=== PATIENT | female | born 1990 | race Caucasian/White ===

== ENCOUNTER 2020-01-16 23:38 | Emergency (ER) | payer MEDICAID ==
[~2020-01-16] VITALS: Ht 154.9 cm; Wt 58.0 kg
[~2020-01-16 23:38] MED LIST: DOXY-243 PO; MOT200T PO; NO HOME MEDS; PROC-8 PO
[2020-01-17 00:57] VITALS: BP 107/55
== END 2020-01-17 01:26 | disposition home or self-care (01) ==
LOC: ER 23:39
DX: N93.9 Abnormal uterine and vaginal bleeding, unspecified (principal); J45.909 Unspecified asthma, uncomplicated; R10.31 Right lower quadrant pain; Z90.49 Acquired absence of other specified parts of digestive tract; Z98.890 Other specified postprocedural states; Z72.89 Other problems related to lifestyle; Z88.2 Allergy status to sulfonamides; Z88.5 Allergy status to narcotic agent; Z79.899 Other long term (current) drug therapy; Z91.040 Latex allergy status
CPT/HCPCS: 36415; 84702; 99283

== ENCOUNTER 2020-03-18 22:48 | Emergency (ER) | payer MEDICAID ==
[~2020-03-18] VITALS: Ht 154.9 cm; Wt 61.4 kg
[2020-03-18] MEDS ORDERED: ketorolac tromethamine 15mg/ml inj. IM ONE (23:25)
[2020-03-18 23:50] LABS: URINE HCG NEGATIVE (NEG)
[2020-03-19] MEDS ORDERED: ondansetron 4mg rapidly disintigrating tab PO ONE (00:20)
[2020-03-19] MEDS ORDERED: oxyCODONE/APAP 5-325mg tablet PO ONE (00:20)
[2020-03-19 01:17] VITALS: BP 103/51
[2020-03-19] MEDS ORDERED: oxyCODONE IR 5mg (immed. release) tablet PO ONE (01:50)
== END 2020-03-19 02:05 | disposition home or self-care (01) ==
LOC: ER 22:49
DX: R10.32 Left lower quadrant pain (principal); R19.7 Diarrhea, unspecified; R11.10 Vomiting, unspecified; J45.909 Unspecified asthma, uncomplicated; Z87.440 Personal history of urinary (tract) infections; Z90.49 Acquired absence of other specified parts of digestive tract; Z98.890 Other specified postprocedural states; Z72.89 Other problems related to lifestyle; Z88.2 Allergy status to sulfonamides; Z88.5 Allergy status to narcotic agent; Z91.040 Latex allergy status; Z79.2 Long term (current) use of antibiotics
CPT/HCPCS: 76856; 81025; 87210; 93976; 96372; 99284; J1885

== ENCOUNTER 2021-05-14 20:34 | Emergency (ER) | payer MEDICAID ==
[~2021-05-14] VITALS: Ht 154.9 cm; Wt 68.2 kg
[2021-05-14 21:00] VITALS: BP 105/68
[2021-05-14 21:36] LABS: URINE HCG NEGATIVE (NEG)
[2021-05-14 21:38] LABS: UA COLLECTION TYPE CLN CATCH MIDSTREAM
[2021-05-14 21:39] LABS: CLARITY,URINE CLOUDY (Clear); COLOR,URINE STRAW (Yellow); GLUCOSE, URINE NEGATIVE (Neg); KETONES,URINE NEGATIVE (Neg); LEUKOCYTE ESTERASE ,URINE NEGATIVE (Neg); NITRITES, URINE NEGATIVE (Neg); OCCULT BLOOD,URINE LARGE (Neg); PH,URINE 7.5 (4.8-8.0); PROTEIN,URINE NEGATIVE (Neg); UROBILINOGEN,URINE 0.2 E.U/dL (0.2-1.0)
[2021-05-14 21:44] LABS: MUCUS STRANDS FEW /LPF (Neg); SQUAMOUS EPITHELIAL CELL,UR FEW /LPF (FEW)
[2021-05-14 21:45] LABS: BACTERIA,URINE FEW /HPF (Neg); RBC,URINE 50-100 /HPF (0-2); WBC,URINE 0-4 /HPF (0-4)
[2021-05-14 21:56] LABS: BASOPHILS % (AUTO) 0.2 % (0-1); EOSINOPHILS # (AUTO) 0.1 X10'3 (0-0.9); EOSINOPHILS % (AUTO) 1.6 % (0-6); HEMOGLOBIN 13.2 g/dl (12.0-16.0); LYMPHOCYTES # (AUTO) 2.1 X10'3 (1.1-4.8); LYMPHOCYTES % (AUTO) 31.5 % (21-51); MEAN CORPUSCULAR HGB CONC 33.9 g/dL (33.0-36.5); MEAN CORPUSCULAR VOLUME 88.6 FL (78-98); MEAN PLATELET VOLUME 9.3 FL (7.4-10.4); MONOCYTES # (AUTO) 0.4 X10'3 (0-0.9); NEUTROPHILS % (AUTO) 60.7 % (42-75); PLATELET COUNT 282 X10'3 (140-440); RED CELL DISTRIBUTION WIDTH 15.3 % (11.5-14.5); WHITE BLOOD COUNT 6.7 X10'3 (4.5-11.0)
[2021-05-14 22:09] LABS: ALANINE AMINOTRANSFERASE 25 U/L (12-78); ALBUMIN 3.6 G/DL (3.4-5.0); ALBUMIN/GLOBULIN RATIO 0.9 (1.1-1.5); ALKALINE PHOSPHATASE 81 IU/L (46-116); ANION GAP 8 (8-16); ASPARTATE AMINO TRANSFERASE 17 U/L (10-37); BILIRUBIN,TOTAL 0.1 MG/DL (0.1-1.0); BLOOD UREA NITROGEN 17 MG/DL (7-18); BUN/CREATININE RATIO 22.4 (6.6-38.0); CALCIUM 8.8 MG/DL (8.5-10.1); CHLORIDE 107 MMOL/L (99-107); CREATININE 0.76 MG/DL (0.40-0.90); GLUCOSE 100 MG/DL (70-104); LIPASE 120 U/L (73-393); SODIUM 141 MMOL/L (135-145); TOTAL CARBON DIOXIDE 25.6 MMOL/L (24-32); TOTAL PROTEIN 7.5 G/DL (6.4-8.2); eGFR 89 ML/MIN
[2021-05-15] MEDS ORDERED: MEDR10TA10 PO (03:28)
== END 2021-05-14 23:30 | disposition left against medical advice (07) ==
LOC: ER 20:35
DX: R10.32 Left lower quadrant pain (principal); Z53.21 Procedure and treatment not carried out due to patient leaving prior to being seen by health care provider
CPT/HCPCS: 36415; 80053; 81001; 81025; 83690; 85025

== ENCOUNTER 2021-05-15 01:16 | Emergency (ER) | payer MEDICAID ==
[~2021-05-15] VITALS: Ht 154.9 cm; Wt 68.2 kg
[2021-05-15 01:43] VITALS: BP 106/64
[2021-05-15] MEDS ORDERED: MEDR10TA10 PO (03:28)
[2021-05-15] MEDS ORDERED: HYDROcodone/acetaminophen 5mg/325mg tablet PO ONE (03:35)
== END 2021-05-15 03:46 | disposition home or self-care (01) ==
LOC: ER 01:17
DX: R10.32 Left lower quadrant pain (principal); N92.0 Excessive and frequent menstruation with regular cycle; R53.1 Weakness; R51.9 Headache, unspecified; J45.909 Unspecified asthma, uncomplicated; Z87.440 Personal history of urinary (tract) infections; Z90.49 Acquired absence of other specified parts of digestive tract; Z98.891 History of uterine scar from previous surgery; Z72.89 Other problems related to lifestyle; Z79.2 Long term (current) use of antibiotics; Z79.899 Other long term (current) drug therapy; Z88.2 Allergy status to sulfonamides; Z88.8 Allergy status to other drugs, medicaments and biological substances; Z91.040 Latex allergy status
CPT/HCPCS: 76856; 93976; 99284

== ENCOUNTER 2021-06-20 01:31 | Emergency (ER) | payer MEDICAID ==
[~2021-06-20] VITALS: Ht 154.9 cm; Wt 72.0 kg
[~2021-06-20 01:31] MED LIST changes: +MEDR10TA10 PO
[2021-06-20 02:45] LABS: BASOPHILS % (AUTO) 0.2 % (0-1); EOSINOPHILS # (AUTO) 0.1 X10'3 (0-0.9); EOSINOPHILS % (AUTO) 0.8 % (0-6); HEMATOCRIT 38.4 % (35.0-45.0); LYMPHOCYTES # (AUTO) 2.5 X10'3 (1.1-4.8); MEAN CORPUSCULAR HEMOGLOBIN 30.4 PG (27.0-31.0); MEAN CORPUSCULAR VOLUME 89.6 FL (78-98); MONOCYTES # (AUTO) 0.6 X10'3 (0-0.9); MONOCYTES % (AUTO) 7.4 % (2-12); NEUTROPHILS # (AUTO) 4.7 X10'3 (1.8-7.7); NEUTROPHILS % (AUTO) 59.6 % (42-75); PLATELET COUNT 283 X10'3 (140-440); RED BLOOD COUNT 4.28 X10'6 (4.20-5.60); RED CELL DISTRIBUTION WIDTH 14.1 % (11.5-14.5); WHITE BLOOD COUNT 7.8 X10'3 (4.5-11.0)
--- NOTE | 2021-06-20 02:57 | NUR ---
ULTRASOUND PAGED FOR ROOM [id number]
[2021-06-20 03:19] LABS: ALBUMIN 3.7 G/DL (3.4-5.0); ANION GAP 9 (8-16); BLOOD UREA NITROGEN 12 MG/DL (7-18); BUN/CREATININE RATIO 16.7 (6.6-38.0); CALCIUM 9.1 MG/DL (8.5-10.1); CHLORIDE 104 MMOL/L (99-107); CREATININE 0.72 MG/DL (0.40-0.90); GLUCOSE 99 MG/DL (70-104); POTASSIUM 3.7 MMOL/L (3.5-5.1); SODIUM 140 MMOL/L (135-145); TOTAL CARBON DIOXIDE 26.9 MMOL/L (24-32); eGFR > 90 ML/MIN
[2021-06-20 03:20] LABS: BETA HCG,QUANTITATIVE 29570 mIU/ml
[2021-06-20 04:04] VITALS: BP 114/61
[2021-06-20] MEDS ORDERED: acetaminophen 325mg tablet PO ONE (04:20)
== END 2021-06-20 05:04 | disposition home or self-care (01) ==
LOC: ER 01:33
DX: O26.851 Spotting complicating pregnancy, first trimester (principal); R11.0 Nausea; R19.7 Diarrhea, unspecified; J45.909 Unspecified asthma, uncomplicated; Z3A.01 Less than 8 weeks gestation of pregnancy; Z87.440 Personal history of urinary (tract) infections; Z90.49 Acquired absence of other specified parts of digestive tract; Z98.890 Other specified postprocedural states; Z72.89 Other problems related to lifestyle; Z88.2 Allergy status to sulfonamides; Z88.5 Allergy status to narcotic agent; Z91.040 Latex allergy status; Z79.2 Long term (current) use of antibiotics
CPT/HCPCS: 36415; 76801; 76817; 80048; 84702; 85025; 99284

== ENCOUNTER 2021-08-19 08:13 | Emergency (ER) | payer MEDICAID ==
[~2021-08-19] VITALS: Ht 154.9 cm; Wt 70.5 kg
[2021-08-19 08:16] VITALS: BP 107/62
[2021-08-20] MEDS ORDERED: ALBU8HFA PO (00:16)
== END 2021-08-19 11:10 | disposition home or self-care (01) ==
LOC: ER 08:14
DX: U07.1 COVID-19 (principal); J45.909 Unspecified asthma, uncomplicated; Z88.2 Allergy status to sulfonamides
CPT/HCPCS: 87635; 99283; C9803

== ENCOUNTER 2021-08-19 20:53 | Emergency (ER) | payer MEDICAID ==
[~2021-08-19] VITALS: Ht 154.9 cm; Wt 68.2 kg
[2021-08-19 21:03] VITALS: BP 109/70
[2021-08-19 21:29] LABS: BASOPHILS % (AUTO) 0.1 % (0-1); EOSINOPHILS # (AUTO) 0.1 X10'3 (0-0.9); HEMATOCRIT 36.6 % (35.0-45.0); HEMOGLOBIN 12.9 g/dl (12.0-16.0); LYMPHOCYTES # (AUTO) 1.3 X10'3 (1.1-4.8); LYMPHOCYTES % (AUTO) 16.9 % (21-51); MEAN CORPUSCULAR HEMOGLOBIN 31.4 PG (27.0-31.0); MEAN CORPUSCULAR HGB CONC 35.1 g/dL (33.0-36.5); MEAN CORPUSCULAR VOLUME 89.5 FL (78-98); MEAN PLATELET VOLUME 9.2 FL (7.4-10.4); MONOCYTES # (AUTO) 0.5 X10'3 (0-0.9); PLATELET COUNT 219 X10'3 (140-440); RED BLOOD COUNT 4.09 X10'6 (4.20-5.60); WHITE BLOOD COUNT 7.9 X10'3 (4.5-11.0)
[2021-08-19 21:50] LABS: ALANINE AMINOTRANSFERASE 43 U/L (12-78); ALBUMIN 2.6 G/DL (3.4-5.0); ALBUMIN/GLOBULIN RATIO 0.7 (1.1-1.5); ALKALINE PHOSPHATASE 76 IU/L (46-116); ANION GAP 11 (8-16); ASPARTATE AMINO TRANSFERASE 25 U/L (10-37); BILIRUBIN,TOTAL 0.2 MG/DL (0.1-1.0); BLOOD UREA NITROGEN 5 MG/DL (7-18); BUN/CREATININE RATIO 7.6 (6.6-38.0); CALCIUM 8.9 MG/DL (8.5-10.1); CHLORIDE 103 MMOL/L (99-107); CREATININE 0.66 MG/DL (0.40-0.90); GLUCOSE 124 MG/DL (70-104); SODIUM 139 MMOL/L (135-145); TOTAL PROTEIN 6.2 G/DL (6.4-8.2); eGFR > 90 ML/MIN
[2021-08-19 22:02] LABS: POTASSIUM 2.8 MMOL/L (3.5-5.1)
[2021-08-19] MEDS ORDERED: potassium Cl 20 mEq SR tablet PO STA (22:46)
[2021-08-19] MEDS ORDERED: ALBUTEROL INHALER 1 PUFF/90 MCG INHALER IH STA (23:17)
[2021-08-20] MEDS ORDERED: mag hydrox/Alum hydrox/simeth 30ml oral suspension PO ONE
[2021-08-20] MEDS ORDERED: LIDOcaine Viscous 15ml cup MM ONE
[2021-08-20] MEDS ORDERED: ALBU8HFA PO (00:16)
== END 2021-08-20 00:21 | disposition home or self-care (01) ==
LOC: ER 20:54
DX: O26.891 Other specified pregnancy related conditions, first trimester (principal); U07.1 COVID-19; R05.9 Cough, unspecified; R06.02 Shortness of breath; R07.89 Other chest pain; Z3A.12 12 weeks gestation of pregnancy
CPT/HCPCS: 36415; 71045; 76801; 80053; 83880; 84484; 85025; 93005; 94640; 94760; 99285

== ENCOUNTER 2022-09-01 17:28 | Emergency (ER) | payer MEDICAID ==
[~2022-09-01] VITALS: Ht 154.9 cm; Wt 54.0 kg
[2022-09-01 17:33] VITALS: BP 123/67
== END 2022-09-01 19:48 | disposition left against medical advice (07) ==
LOC: ER 17:29
DX: R10.30 Lower abdominal pain, unspecified (principal); Z53.21 Procedure and treatment not carried out due to patient leaving prior to being seen by health care provider

== ENCOUNTER 2022-11-02 21:58 | Emergency (ER) | payer MEDICAID ==
[~2022-11-02] VITALS: Ht 154.9 cm; Wt 51.0 kg
[2022-11-02 22:08] VITALS: BP 108/65
== END 2022-11-03 00:23 | disposition left against medical advice (07) ==
LOC: ER 21:58
DX: M25.562 Pain in left knee (principal); Z53.21 Procedure and treatment not carried out due to patient leaving prior to being seen by health care provider
CPT/HCPCS: 99281

== ENCOUNTER 2023-07-29 11:32 | Emergency (ER) | payer SELFPAY ==
[~2023-07-29] VITALS: Ht 154.9 cm; Wt 51.5 kg
[2023-07-29 12:38] VITALS: BP 123/73; PULSE 78; RESP 20; TEMP 97.9; O2SAT 98
== END 2023-07-29 13:31 | disposition left against medical advice (07) ==
LOC: ER 11:33
DX: R55 Syncope and collapse (principal)
CPT/HCPCS: 99281